=== PATIENT | female | born 1955 | race Caucasian/White ===

== ENCOUNTER 2016-10-26 10:08 | Day surgery (SDC) | payer OTHER ==
[~2016-10-26] VITALS: Ht 167.6 cm; Wt 73.9 kg
[~2016-10-26 10:08] MED LIST: 0.9% Sodium Chloride 1,000 ML IV SCH; ALEN35TA3 PO; ASCO1500 PO; CALCIUM 500+VI1 EACH PO; MULT-1007 PO; OXYC-176 PO; Sodium Chloride LOK Flush 10 mL Syringe IV PRN; VIS25 PO; VIT1TABL83 PO; fentaNYL-PF 50 mCg/mL 2 mL Inj IVPUSH PRN
[2016-10-26 10:26] VITALS: BP 119/67; PULSE 80; RESP 16; O2SAT 99
[2016-10-26 11:27] VITALS: BP 92/55; PULSE 74; RESP 14; O2SAT 99
[2016-10-26 11:37] VITALS: BP 98/57; PULSE 64; RESP 14; O2SAT 99
--- NOTE | 2016-10-26 19:09 | ENDO ---
[address] [address] ENDOSCOPY PROCEDURE PATIENT: RICA SIDDIQUI : 1955 MR#: [id number] ADMIT: 10/26/2016 JOB ID: [id number] DATE OF SERVICE: 10/26/2016 PRIMARY PROVIDER: Nisreen Stewart PA-C. PROCEDURE: Colonoscopy. INDICATIONS: A 61-year-old female who reports for colon cancer screening. EQUIPMENT: PCF H 180 AL. SEDATION: 4 mg Versed and 100 mcg fentanyl. COMPLICATIONS: None identified. BOWEL PREPARATION: Fair, adequate exam. PROCEDURE INFORMATION: After the risks and benefits were explained, written and verbal informed consent was obtained. The patient was brought into the endoscopy suite and placed into the left lateral decubitus position. Sedation was achieved using the above-stated medications with the addition of oxygen via nasal cannula. Digital rectal examination was accomplished. No significant pathology appreciated. The scope was introduced into the rectum and advanced to the cecum as identified by the appendiceal orifice and ileocecal valve. The scope was slowly withdrawn to carefully examine the mucosa for any defects or lesions. Multiple direct views were made through the dentate line for exclusion of pathology. The colon was decompressed, the scope removed from the patient who tolerated the procedure well. FINDINGS: No significant polyps, mass lesions, or inflammatory features identified throughout. ENDOSCOPIC DIAGNOSES: Mild internal hemorrhoids, otherwise visually unremarkable colonoscopy to cecum. RECOMMENDATIONS: Repeat colonoscopy in 10 years' time, sooner should symptoms warrant an earlier exam.
== END 2016-10-26 23:59 | disposition home or self-care (01) ==
LOC: END 10:08
PROVIDERS: ATTEND Internal Medicine Gastroenterology
DX: Z12.11 Encounter for screening for malignant neoplasm of colon (principal); K64.8 Other hemorrhoids; F41.8 Other specified anxiety disorders; M85.80 Other specified disorders of bone density and structure, unspecified site; M54.5 Low back pain; H81.10 Benign paroxysmal vertigo, unspecified ear; Z86.2 Personal history of diseases of the blood and blood-forming organs and certain disorders involving the immune mechanism
CPT/HCPCS: 99153; G0121; G0500; J2250; J3010; J7030